=== PATIENT | male | born 1980 | race African-American/Black ===

== ENCOUNTER 2019-05-12 14:24 | Emergency (ER) | payer MEDICAID ==
--- NOTE | 2019-05-12 14:53 | ER Document Report ---
ED Medical Screen (RME) - General Chief Complaint: Arm Pain Stated Complaint: HEADACHE/ARM PAIN Time Seen by Provider: 05/12/19 14:49 Mode of Arrival: Ambulatory Information source: Patient Notes: 38-year-old male presented to ED for complaint of severe headache about 1130 with cramping down his left arm. He states the headache was global. He states he went to the store got some Tylenol and by 1230 or so he was feeling better he called the work to tell him that he was coming in now because he was feeling better that he had felt very bad earlier. He states that the boss told him if he felt that that he needed to get checked off before he came into work. So he is come to the emergency room to get checked out. He states his headache is better with the Tylenol. He does smoke a pack a day does not drink or use any drugs. Physical Exam - Vital signs Vitals: Temp Pulse Resp BP Pulse Ox 98 F 95 18 130/91 H 98 05/12/19 14:34 05/12/19 14:34 05/12/19 14:34 05/12/19 14:34 05/12/19 14:34 Course - Vital Signs Vital signs: Temp Pulse Resp BP Pulse Ox 98 F 95 18 130/91 H 98 05/12/19 14:34 05/12/19 14:34 05/12/19 14:34 05/12/19 14:34 05/12/19 14:34
[2019-05-12 15:35] LABS: ABSOLUTE BASOPHILS # (AUTO) 0.1 10^3/uL (0.0-0.2); ABSOLUTE EOSINOPHILS # (AUTO) 0.1 10^3/uL (0.0-0.6); ABSOLUTE LYMPHOCYTES (AUTO) 3.5 10^3/uL (0.5-4.7); ABSOLUTE MONOCYTES (AUTO) 0.8 10^3/uL (0.1-1.4); ABSOLUTE NEUT (AUTO) 5.3 10^3/uL (1.7-8.2); BASOPHILS % (AUTO) 1.4 % (0-2); EOSINOPHILS % (AUTO) 1.3 % (0-6); HEMATOCRIT 41.4 % (37.9-51.0); LYMPHOCYTES % (AUTO) 35.4 % (13-45); MEAN CORPUSCULAR HEMOGLOBIN 29.8 pg (27.0-33.4); MEAN CORPUSCULAR HGB CONC 33.9 g/dL (32.0-36.0); MEAN CORPUSCULAR VOLUME 88 fl (80-97); MONOCYTES % (AUTO) 8.4 % (3-13); PLATELET COUNT 338 10^3/uL (150-450); RED CELL DISTRIBUTION WIDTH 14.8 % (11.5-14.0); SEGMENTED NEUTROPHILS % (AUTO) 53.5 % (42-78); TOTAL CELLS COUNTED % (AUTO) 100 %; WHITE BLOOD COUNT 9.8 10^3/uL (4.0-10.5)
[2019-05-12 15:45] LABS: APPEARANCE,URINE SLIGHTLY-CLOUDY; BILIRUBIN,URINE NEGATIVE (NEGATIVE); COLOR,URINE YELLOW; GLUCOSE, URINE NEGATIVE (NEGATIVE); KETONES,URINE NEGATIVE (NEGATIVE); PROTEIN,URINE NEGATIVE (NEGATIVE); URINE SPECIFIC GRAVITY 1.025
[2019-05-12 15:47] LABS: ALBUMIN 4.4 g/dL (3.5-5.0); ALKALINE PHOSPHATASE 84 U/L (38-126); ANION GAP 10 (5-19); ASPARTATE AMINO TRANSFERASE 23 U/L (17-59); BILIRUBIN,DIRECT 0.1 mg/dL (0.0-0.4); BILIRUBIN,TOTAL 0.4 mg/dL (0.2-1.3); BLOOD UREA NITROGEN 9 mg/dL (7-20); CALCIUM 9.7 mg/dL (8.4-10.2); CARBON DIOXIDE 24 mmol/L (22-30); CHLORIDE 106 mmol/L (98-107); GLUCOSE 101 mg/dL (75-110); TOTAL PROTEIN 7.3 g/dL (6.3-8.2)
[2019-05-12 15:56] LABS: URINE AMPHETAMINES SCREEN NEGATIVE; URINE BARBITURATES SCREEN NEGATIVE; URINE BENZODIAZEPINES SCREEN NEGATIVE; URINE COCAINE SCREEN NEGATIVE; URINE MARIJUANA (THC) SCREEN UNCONFIRMED POSITIVE; URINE METHADONE SCREEN NEGATIVE; URINE PHENCYCLIDINE SCREEN NEGATIVE
--- NOTE | 2019-05-12 16:59 | ER Document Report ---
ED Headache - General Chief Complaint: Headache Stated Complaint: HEADACHE/ARM PAIN Time Seen by Provider: 05/12/19 14:49 Mode of Arrival: Ambulatory Notes: Patient is a 38-year-old male who presents the emergency department with a chief complaint of a headache. He woke up this morning and stated that he had a global headache. He took some Tylenol and on the way here his headache went away. Patient is congested. States he is he is been congested for the past few weeks. Admits to some rhinorrhea. He does not know if he has any allergies. Denies any fever. Denies any numbness, tingling, loss of consciousness, or weakness. Patient states that he has no more symptoms. TRAVEL OUTSIDE OF THE [place] IN LAST 30 DAYS: No - Related Data Allergies/Adverse Reactions: No Known Allergies Allergy (Unverified 05/12/19 14:53) Past Medical History - General Information source: Patient - Social History Smoking Status: Current Every Day Smoker Chew tobacco use (# tins/day): No Frequency of alcohol use: None Drug Abuse: None Family History: Reviewed & Not Pertinent Patient has suicidal ideation: No Patient has homicidal ideation: No Review of Systems - Review of Systems Notes: REVIEW OF SYSTEMS: CONSTITUTIONAL : Denies recent illness. Denies recent unintentional weight loss. Denies fever, chills, or sweats. EENT: See HPI. CARDIOVASCULAR: Denies chest pain. RESPIRATORY: Denies shortness of breath, cough, congestion, difficulty breathing, or wheezing. GASTROINTESTINAL: Denies nausea, vomiting, and diarrhea. Denies abdominal pain. Denies constipation. GENITOURINARY: Denies difficulty urinating, burning, blood in urine, urgency or frequency. MUSCULOSKELETAL: Denies neck and back pain. Denies joint pain or swelling. SKIN: Denies rash, itchiness, or lesions HEMATOLOGIC : Denies easy bruising or bleeding. LYMPHATIC: Denies swollen, painful, enlarged glands. NEUROLOGICAL: See HPI. PSYCHIATRIC: Denies stress, anxiety, alteration in sleep patterns, or depression. All other systems reviewed and negative. Physical Exam - Vital signs Vitals: Temp Pulse Resp BP Pulse Ox 98 F 95 18 130/91 H 98 05/12/19 14:34 05/12/19 14:34 05/12/19 14:34 05/12/19 14:34 05/12/19 14:34 - Notes Notes: PHYSICAL EXAMINATION: GENERAL: Appears well, healthy, well-nourished, no acute distress. HEAD: Normocephalic, atraumatic. EYES: PERRL, conjunctiva normal, all extraocular movements intact, sclera nonicteric ENT: Moist mucous membranes. Edema and erythema to the nasal mucosa. NECK: Supple, no noticeable swelling, redness, rash. Normal range of motion. LUNGS: Equal breath sounds bilaterally and clear to auscultation. No wheezes rales or rhonchi. CARDIOVASCULAR: S1-S2, regular rate, regular rhythm. Radial pulses 2+, normal. ABDOMEN: Normoactive bowel sounds. Soft, nontender, no guarding, no rebound tenderness, and no masses palpated. EXTREMITIES: Normal strength and range of motion, no pitting or edema. No cyanosis. NEUROLOGICAL: Moves all extremities upon command. Strength 5/5 in all extremities. PSYCH: Normal mood, normal affect. SKIN: Warm, dry. No rash, lesions, ulcerations noted. Normal skin turgor. Course - Re-evaluation Re-evalutation: 05/12/19 16:56 Patient's hematology, chemistry, urinalysis are unremarkable. Patient is positive for marijuana, as per urine drug screen ordered in triage. Patient states that he feels better. He is asking for work note. He does have erythema and erythema to his nasal mucosa. He will be started on cetirizine and Flonase to help with the symptoms. Educated the patient on Tylenol and ibuprofen use for pain relief. I have a very low suspicion for any life-threatening etiology at this time. Patient does not have a primary care provider here, but states that he is from [place]. I advised him to follow-up with the primary care provider as needed. - Vital Signs Vital signs: Temp Pulse Resp BP Pulse Ox 98.1 F 66 16 116/89 H 98 05/12/19 17:06 05/12/19 17:06 05/12/19 17:06 05/12/19 17:06 05/12/19 17:06 - Laboratory Result Diagrams: 05/12/19 15:05 05/12/19 15:05 Laboratory results interpreted by me: 05/12/19 05/12/19 14:55 15:05 RDW 14.8 H Urine Urobilinogen 2.0 H Discharge - Discharge Clinical Impression: Headache, Nose congestion Condition: Stable Disposition: HOME, SELF-CARE Additional Instructions: You were seen today in the emergency department for a congested nose and headache. Your headache went away with Tylenol. Please take acetaminophen 1000 mg and ibuprofen 600 mg every 6 hours as needed for any body aches or fever. You have been given cetirizine, medication to help with your runny nose. Take 1 tablet every day while you have symptoms. You have also been given Flonase, medication to help with the inflammation in your nose. Place 1 spray to each nostril twice a day. If you develop a fever greater than 100.4 F while on ibuprofen and acetaminophen, develop shortness of breath, difficulty breathing, or any symptoms that are worrisome to you, please return to the emergency department. Prescriptions: Cetirizine HCl [All Day Allergy] 10 mg PO DAILY #30 tablet Fluticasone Propionate [Flonase Nasal Beaver 50 Mcg/Beaver 16 gm] 2 sprays NASL DAILY #1 inhaler Forms: Return to Work
[2019-05-12 17:06] VITALS: BP 116/89
== END 2019-05-12 17:07 | disposition home or self-care (01) ==
LOC: ER 14:24
DX: R51 Headache (principal); R09.81 Nasal congestion; M79.603 Pain in arm, unspecified; F17.200 Nicotine dependence, unspecified, uncomplicated
CPT/HCPCS: 36415; 80053; 80307; 81001; 85025